=== PATIENT | female | born 1940 | race Caucasian/White ===

== ENCOUNTER → 2023-04-13 | Outpatient (CLI) | payer MEDICARE ==
--- NOTE | 2023-04-13 16:02 | XR ---
EXAMINATION TYPE: XR lumbosacral spine min 4V, XR thoracic spine complete DATE OF EXAM: 04/13/2023 3:43 PM INDICATION: Patient age:Female; 83 years old; Reason for study: R20.2 M40.204; [facility]. COMPARISON: None TECHNIQUE: Frontal, lateral , bilateral oblique and coned in L5-S1 lateral views of the spine. Fronta l, lateral, swimmer's view of the thoracic spine are obtained. FINDINGS: There are 5 lumbar type vertebral bodies identified. Incomplete fusion of the posterior erika ments of the L5 vertebral body consistent with spina bifida. S-shaped scoliotic curvature of the thor acolumbar spine. Levocurvature of the lumbar spine with dextrocurvature of the lower thoracic spine. Post surgical changes with nonspecific wire in the region of the GE junction. Anterior wedging of the 11th vertebral body with approximately 10 % height loss. No retropulsion. Grade 1 anterolisthesis of L4 on L5 and L5 on S1. Mild retrolisthesis of L1 on L2 and L2 on L3. Multi level degenerative disc disease of the thoracolumbar spine with disc space narrowing, endplate sclero sis, and anterior osteophytosis. Multilevel facet arthropathy which is most pronounced involving the lower lumbar spine. Atherosclerotic calcification of the aorta. Valvular prosthesis. Surgical clips w ith likely abandoned epicardial lead in the region of the GE junction. Median sternotomy wires. IMPRESSION: 1. Anterior wedging of the T11 vertebral body with approximately 10% height loss in the retropulsion . Correlate for point tenderness. 2. [id number] multilevel degenerative disease. 3. S-shaped scoliotic curvature of the thoracic and lumbar spine.
--- NOTE | 2023-04-13 16:13 | XR ---
EXAMINATION TYPE: XR cervical spine limited DATE OF EXAM: 04/13/2023 3:43 PM INDICATION: Patient age:Female; 83 years old; Reason for study: R20.2 M40.204; [facility]. COMPARISON: Thoracic spine radiograph the same date TECHNIQUE: The cervical spine was imaged in frontal, lateral, and odontoid projections. FINDINGS: The osseous structures show normal alignment without evidence of an acute fracture. There are osteoph ytes noted throughout the cervical spine on the anterior and lateral aspects of the vertebral bodies. Mild disc space narrowing of the mid to lower cervical spine with endplate sclerosis and anterior os teophytosis. This is most pronounced at C5-C6 and C6-C7. Median sternotomy wires. Pedicles are intact . Soft tissues are within normal limits. The odontoid appears intact. IMPRESSION: 1. No fracture or dislocation. 2. Mild to moderate degenerative disc disease changes of the cervical spine.
== END | disposition home or self-care (01) ==
LOC: RADXRMAIN 14:58
PROVIDERS: ATTEND Nurse Practitioner Family
DX: M48.54XA Collapsed vertebra, not elsewhere classified, thoracic region, initial encounter for fracture (principal); M50.322 Other cervical disc degeneration at C5-C6 level; M51.35 Other intervertebral disc degeneration, thoracolumbar region; M41.85 Other forms of scoliosis, thoracolumbar region; R20.2 Paresthesia of skin
CPT/HCPCS: 72040; 72072; 72110

== ENCOUNTER → 2023-04-26 | Outpatient (CLI) | payer MEDICARE ==
--- NOTE | 2023-04-26 22:29 | US ---
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 Assess for hernia at location of: Midline abdominal wall just posterior to xiphoid process at area o f incision Hypoechoic protrusion from abdominal wall at area of concern/incision. Overall, measures 1.6 x 0.9 x 0.8 cm IMPRESSION: Suspected herniation within the subcutaneous tissues. Consider additional workup with CT . Real-time scanning was performed by the caustic room operator utilizing Valsalva and additional dynamic maneuve rs to assess for hernia. Images of the contralateral side were also acquired for direct comparison.
== END | disposition home or self-care (01) ==
LOC: RADUSWWP 09:50
PROVIDERS: ATTEND Family Medicine
DX: K43.9 Ventral hernia without obstruction or gangrene (principal); Z95.1 Presence of aortocoronary bypass graft
CPT/HCPCS: 76705

== ENCOUNTER → 2023-05-24 | Outpatient (CLI) | payer MEDICARE ==
--- NOTE | 2023-05-24 11:26 | CT ---
EXAM: CT chest abdomen wo con EXAM DATE AND TIME: HISTORY:K43.2 INCISIONAL HERNIA WITHOUT OBSTRUCTION OR VAIBHAV PROCEDURE: Noncontrast transaxial sections were obtained through the chest, abdomen, and pelvis. Sagi ttal and coronal reformations were constructed. COMPARISON: None available. FINDINGS: IMAGED PORTION OF THE NECK The imaged portion of the neck is unremarkable. CHEST OVERVIEW: Images in this region are of adequate diagnostic quality. AIRWAYS: Unremarkable. LUNG PARENCHYMA: Unremarkable. PLEURA: Unremarkable. PULMONARY VASCULATURE: Unremarkable. HILAR LYMPH NODES: Unremarkable. MEDIASTINAL LYMPH NODES: Unremarkable. HEART: Moderate global cardiomegaly is seen. There is a prosthetic mitral valve. Patchy coronary artery calcifications are present. Prior CABG. There are epicardial leads. THORACIC AORTA: There is significant vascular calcification throughout the thoracic aorta without e vidence of aneurysmal dilation. There are midline sternotomy wires. SUPERIOR VENA CAVA: Unremarkable. ESOPHAGUS: Unremarkable. ABDOMEN OVERVIEW: The images in this region are of adequate diagnostic quality. LIVER: Unremarkable. BILE DUCTS: Unremarkable. GALLBLADDER: Unremarkable. PANCREAS: Unremarkable. SPLEEN: Unremarkable. ADRENAL GLANDS: Unremarkable. RIGHT KIDNEY: Unremarkable. RIGHT URETER: Unremarkable. LEFT KIDNEY: Unremarkable. LEFT URETER: Unremarkable. ABDOMINAL AORTA: There is significant vascular calcification seen throughout the abdominal aorta without evidence of aneurysmal dilation. ABDOMINAL VENOUS SYSTEM: Unremarkable. ABDOMINAL LYMPH NODES: Unremarkable. STOMACH: Unremarkable. SMALL BOWEL: Unremarkable. LARGE BOWEL: Unremarkable. MESENTERY AND OMENTUM: Unremarkable. PERITONEUM: Unremarkable. BONES: Multilevel degenerative disc and facet changes are seen throughout the spine. There are no acute osseous abnormalities IMAGED SOFT TISSUES OF THE BODY WALL: Unremarkable. SUPERFICIAL LYMPH NODES: Unremarkable. IMPRESSION 1. No acute process seen within the chest or abdomen. 2. No evidence of hernia identified.
== END | disposition home or self-care (01) ==
LOC: RADCTMAIN 10:18
PROVIDERS: ATTEND Family Medicine
DX: K43.2 Incisional hernia without obstruction or gangrene (principal)
CPT/HCPCS: 71250; 74150

== ENCOUNTER 2023-07-20 23:12 | Emergency (ER) | payer MEDICARE ==
[2023-07-20] MEDS ORDERED: TRANEXAMIC ACID 1,000 MG/10 ML VIAL MISCELLANE ONE (23:19)
[2023-07-20] MEDS ORDERED: OXYMETAZOLINE 0.05% NASL SPRAY 1 SPRAY BOTTLE NASAL STA (23:20)
[2023-07-20] MEDS ORDERED: BACITRACIN OINT 1 EACH PACKET TOPICAL ONE (23:45)
[2023-07-21] MEDS ORDERED: CEPHALEXIN 500 MG CAP PO STA (00:40)
--- NOTE | 2023-07-21 00:52 | ED ---
ENT HPI - General Chief complaint: ENT Stated complaint: High BP Nose bleed Time Seen by Provider: 07/20/23 23:15 Source: patient, EMS Mode of arrival: EMS Limitations: no limitations - History of Present Illness Initial comments: 83-year-old female with past medical history of cardiac disease on anticoagulation who presents to the emergency department with epistaxis. States that just prior to hospital arrival she had sudden onset of bleeding from her nose. She denies any trauma. She does take anticoagulation due to her history of heart disease with open heart surgery. She denies having any abnormal bleeding previous to this. She does not wear oxygen. EMS was called and found the patient to be hypertensive. Does admit to a history of hypertension but did take all of her medications this evening. She denies any lightheadedness or dizziness. No other alleviating, precipitating or modifying factors - Related Data Previous Rx's Medication Instructions Recorded Cephalexin [Keflex] 500 mg PO BID #6 cap 07/21/23 Allergies Allergy/AdvReac Type Severity Reaction Status Date / Time No Known Allergies Allergy Verified 07/20/23 23:18 Review of Systems ROS Statement: Those systems with pertinent positive or pertinent negative responses have been documented in the HPI. ROS Other: All systems not noted in ROS Statement are negative. Past Medical History History of Any Multi-Drug Resistant Organisms: None Reported Past Psychological History: No Psychological Hx Reported Smoking Status: Never smoker Past Alcohol Use History: None Reported Past Drug Use History: None Reported General Exam Limitations: no limitations General appearance: alert, anxious Head exam: Present: atraumatic, normocephalic, normal inspection Eye exam: Present: normal appearance, PERRL, EOMI. Absent: scleral icterus, conjunctival injection, periorbital swelling ENT exam: Present: other (Significant epistaxis from the left nare. Unable to visualize where the bleeding is coming from) Neck exam: Present: normal inspection. Absent: tenderness, meningismus, lymphadenopathy Respiratory exam: Present: normal lung sounds bilaterally. Absent: respiratory distress, wheezes, rales, rhonchi, stridor Cardiovascular Exam: Present: regular rate, normal rhythm, normal heart sounds. Absent: systolic murmur, diastolic murmur, rubs, gallop, clicks GI/Abdominal exam: Present: soft, normal bowel sounds. Absent: distended, tenderness, guarding, rebound, rigid Extremities exam: Present: normal inspection, full ROM, normal capillary refill. Absent: tenderness, pedal edema, joint swelling, calf tenderness Back exam: Present: normal inspection Neurological exam: Present: alert, oriented X3, CN II-XII intact Psychiatric exam: Present: normal affect, normal mood Skin exam: Present: warm, dry, intact, normal color. Absent: rash Course Vital Signs 07/20/23 07/20/23 07/21/23 23:15 23:57 01:05 Temperature 97.9 F 97.4 F L Pulse Rate 99 96 87 Respiratory 18 20 18 Rate Blood Pressure 194/101 150/88 126/74 O2 Sat by Pulse 97 97 96 Oximetry Medical Decision Making - Medical Decision Making Was pt. sent in by a medical professional or institution (KAREN Bledsoe, SENIOR OPERATIONS MANAGER, urgent care, hospital, or snf...) When possible be specific @ -No Did you speak to anyone other than the patient for history (EMS, parent, family, police, friend...)? What history was obtained from this source @ -Spoke with EMS Did you review nursing and triage notes (agree or disagree)? Why? @ -I reviewed and agree with nursing and triage notes Were old charts reviewed (outside hosp., previous admission, EMS record, old EKG, old radiological studies, urgent care reports/EKG's, snf records)? Report findings @ -No old charts were reviewed Differential Diagnosis (chest pain, altered mental status, abdominal pain women, abdominal pain men, vaginal bleeding, weakness, fever, dyspnea, syncope, headache, dizziness, GI bleed, back pain, seizure, CVA, palpatations, mental health, musculoskeletal)? @ -Posterior epistaxis, anterior epistaxis, coagulopathy, nasal trauma EKG interpreted by me (3pts min.). @ -Not done X-rays interpreted by me (1pt min.). @ -None done CT interpreted by me (1pt min.). @ -None done U/S interpreted by me (1pt. min.). @ -None done What testing was considered but not performed or refused? (CT, X-rays, U/S, labs)? Why? @ -None What meds were considered but not given or refused? Why? @ -None Did you discuss the management of the patient with other professionals (professionals i.e. KAREN Bledsoe, SENIOR OPERATIONS MANAGER, lab, RT, psych nurse, socially responsible investment adviser, bomb squad commander, teacher, chairman and chief executive officer, comp field case manager)? Give summary @ -No Was smoking cessation discussed for >3mins.? @ -No Was critical care preformed (if so, how long)? @ -No Were there social determinants of health that impacted care today? How? (Homelessness, low income, unemployed, alcoholism, drug addiction, transportation, low edu. Level, literacy, decrease access to med. care, penitentiary, rehab)? @ -No Was there de-escalation of care discussed even if they declined (Discuss DNR or withdrawal of care, Hospice)? DNR status @ -No What co-morbidities impacted this encounter? (DM, HTN, Smoking, COPD, CAD, C ancer, CVA, ARF, Chemo, Hep., AIDS, mental health diagnosis, sleep apnea, morbid obesity)? @ -Cardiac disease on anticoagulation, hypertension Was patient admitted / discharged? Hospital course, mention meds given and route, prescriptions, significant lab abnormalities, going to OR and other pertinent info. @ -Upon arrival patient was placed into room 7. Thorough history and physical exam was performed. We did attempt to utilize a nasal clamp and pressure however patient is bleeding through. I did instill Afrin into each nare. I als o placed TXA on two cottonball and placed one in each nare. Visualization demonstrates that the bleeding is coming from the left side however cannot see due to copious bleeding. I did attempt to place a Rhino Rocket however patient did not tolerate the size of the packing. I then used a 10 cm Merocel placed it in the left nose. Bleeding was controlled. Patient was watched for 45 minutes without rebleeding. Blood pressure did return to normal. Patient was given a dose of Keflex. She will be discharged home and instructed to call to make an appointment with ENT. Packing needs to be removed in 48-72 hours. She'll be placed on antibiotics. Return for any new or worsening symptoms. Patient agreeable. discharged in stable condition Undiagnosed new problem with uncertain prognosis? @ -No Drug Therapy requiring intensive monitoring for toxicity (Heparin, Nitro, Insulin, Cardizem)? @ -No Were any procedures done? @ -10 cm Merocel nasal packing left nare Diagnosis/symptom? @ -Acute epistaxis, suspected anterior. Hypertension Acute, or Chronic, or Acute on Chronic? @ -Acute Uncomplicated (without systemic symptoms) or Complicated (systemic symptoms)? @ -Complicated Side effects of treatment? @ -No Exacerbation, Progression, or Severe Exacerbation? @ -No Poses a threat to life or bodily function? How? (Chest pain, [place], [place], pneumonia, PE, COPD, DKA, ARF, appy, cholecystitis, CVA, Diverticulitis, Homicidal, Suicidal, threat to staff... and all critical care pts) @ -No Disposition Clinical Impression: Epistaxis Disposition: HOME SELF-CARE Condition: Stable Instructions (If sedation given, give patient instructions): Nosebleed (ED) Additional Instructions: Take the antibiotics as directed. Call to make an appointment with the ENT office to have your nasal packing removed in 48-72 hours. Return should your bleeding start again Prescriptions: Cephalexin [Keflex] 500 mg PO BID #6 cap Is patient prescribed a controlled substance at d/c from ED?: No Referrals: None,Stated [REFERRING] - 1-2 days Romain Ferguson DO [Doctor of Osteopathic Medicine] - 1-2 days Time of Disposition: 00:56
[2023-07-21 01:17] VITALS: BP 126/74; PULSE 87; RESP 18; TEMP 97.4
== END 2023-07-21 01:24 | disposition home or self-care (01) ==
LOC: EC 23:12
DX: R04.0 Epistaxis (principal); I10 Essential (primary) hypertension
CPT/HCPCS: 30901; 99284

== ENCOUNTER → 2023-10-09 | Outpatient (CLI) | payer MEDICARE ==
--- NOTE | 2023-10-09 12:06 | MR ---
EXAMINATION TYPE: MR brain wo con DATE OF EXAM: 10/09/2023 11:11 AM CLINICAL INDICATION:Female, 83 years old with history of H53.9 VISUAL DISTURBANCE; PHH, Dizziness. COMPARISON: None. TECHNIQUE: Multi planar, multi sequence imaging was performed through the brain including: T1, T2, In version recovery, Diffusion weighted imaging, and gradient echo imaging. No gadolinium was given. FINDINGS: Minimal injury to the left frontal lobe versus prominent perivascular space.. The castillo-white junction s, ventricular system, basal cisterns appear unremarkable. Scattered foci of high T2 signal intensi ty are seen within the periventricular white matter. Midline structures show no abnormality. Diffusio n-weighted imaging shows no evidence of restricted diffusion. The susceptibility weighted images do n ot reveal any evidence for micro-hemorrhage. The bone marrow signal is within normal limits. Paranasal sinuses and mastoid air cells: No significant paranasal sinus disease. Visualized orbits: Bilaterally aphakia. IMPRESSION: 1. No evidence of intracranial mass or acute/subacute infarct. 2. Nonspecific white matter changes, likely secondary to small vessel ischemic disease.
== END | disposition home or self-care (01) ==
LOC: RADMRIMAIN 10:29
PROVIDERS: ATTEND Family Medicine
DX: G93.89 Other specified disorders of brain (principal); H53.9 Unspecified visual disturbance; R42 Dizziness and giddiness
CPT/HCPCS: 70551